=== PATIENT | female | born 1950 | race Hispanic/Latino ===

== ENCOUNTER 2018-04-21 15:04 | Emergency (ER) | payer BC, MEDICARE ==
[2018-04-21] MEDS ORDERED: FLUORESCEIN SODIUM 0.6 MG STRIP ONE (16:05)
[2018-04-21] MEDS ORDERED: NA BORATE/BORIC AC/H2O/NACL 120 ML OPHTH IRRIG SOLN ONE (16:05)
== END 2018-04-21 16:43 | disposition home or self-care (01) ==
LOC: EDH 15:04
DX: S05.02XA Injury of conjunctiva and corneal abrasion without foreign body, left eye, initial encounter (principal); Z90.710 Acquired absence of both cervix and uterus; X58.XXXA Exposure to other specified factors, initial encounter; Y93.89 Activity, other specified; Y92.89 Other specified places as the place of occurrence of the external cause; Y99.8 Other external cause status

== ENCOUNTER 2020-09-03 12:46 | Inpatient (IN) | payer BC, MEDICARE ==
[~2020-09-03] VITALS: Ht 160 cm; Wt 70.3 kg
[2020-09-03] MEDS ORDERED: ACETAMINOPHEN 500 MG TABLET ONE (13:03)
[2020-09-03 13:30] LABS: BASOPHILS % (AUTO) 0.4 % (0.0-5.0); EOSINOPHILS % (AUTO) 0.8 % (0.0-8.0); HEMATOCRIT 41.5 % (36-48); LYMPHOCYTES % (AUTO) 11.9 % (21.0-51.0); MEAN CORPUSCULAR HEMOGLOBIN 29.5 pg (27.0-33.0); MEAN CORPUSCULAR VOLUME 89.4 fL (79-99); MONOCYTES % (AUTO) 7.8 % (3.0-13.0); NEUTROPHILS % (AUTO) 78.7 % (40.0-77.0); PLATELET COUNT (AUTO) 245 K/uL (130-400); RED BLOOD CELL COUNT(AUTO) 4.64 MIL/uL (4.00-5.50); RED CELL DISTRIBUTION WIDTH 13.2 % (11.0-15.5); WHITE BLOOD COUNT (AUTO) 11.6 K/uL (4.8-10.8)
[2020-09-03 13:32] LABS: APPEARANCE,URINE Clear (CLEAR); BILIRUBIN,URINE Large (NEGATIVE); COLOR,URINE Dark Yellow (YELLOW); GLUCOSE, URINE (UA) Negative (NEGATIVE); KETONES,URINE Negative (NEGATIVE); LEUKOCYTE ESTERASE ,URINE Trace (NEGATIVE); NITRATE,URINE Negative (NEGATIVE); OCCULT BLOOD,URINE Trace (NEGATIVE); PH,URINE 5.5 (5.0-8.0); PROTEIN,URINE Negative (NEGATIVE)
[2020-09-03 13:47] LABS: B-TYPE NATRIURETIC PEPTIDE 504 pg/mL (0-100)
[2020-09-03 13:48] LABS: BACTERIA,URINE Rare /HPF (None Seen); RBC,URINE 0-1 /HPF (0-1); WBC,URINE 0-1 /HPF (0-1)
[2020-09-03 13:49] LABS: SQUAMOUS EPITHELIAL CELL,UR Few /HPF (0-2)
[2020-09-03 13:57] LABS: ALBUMIN 3.4 g/dL (3.5-5.0); BILIRUBIN,TOTAL 4.4 mg/dL (0.2-1.0); POTASSIUM 3.2 mmol/L (3.5-5.1); TOTAL PROTEIN, SERUM 7.7 g/dL (6.0-8.3)
[2020-09-03 14:01] LABS: PARTIAL THROMBOPLASTIN TIME 22.8 SEC (26.3-35.5)
[2020-09-03 14:08] LABS: PROTHROMBIN TIME 10.9 SEC (9.6-11.6)
[2020-09-03 14:45] LABS: CREATININE 0.9 mg/dL (0.5-1.5)
[2020-09-03] MEDS ORDERED: GADOTERATE MEGLUMINE 10 MMOL/20 ML VIAL IV ONE (14:49)
[2020-09-03] MEDS: LACTATED RINGERS 1000ML 1,000 ML IV SCH (15:45)
[2020-09-03] MEDS ORDERED: ONDANSETRON 4MG INJ IV PRN (15:45)
[2020-09-03] MEDS ORDERED: POTASSIUM CHLORIDE 10MEQ/100ML 100 ML IV PRN (16:15)
[2020-09-03] MEDS ORDERED: LIDOCAINE HCL-MPF 1% 2ML VIAL IV PRN (16:15)
[2020-09-03 16:42] LABS: CHOLESTEROL 183 mg/dL (<200); HDL CHOLESTEROL 68 mg/dL (35-85); LDL DIRECT 82 mg/dL (0-99); TRIGLYCERIDES 74 mg/dL (30-200)
[2020-09-03] MEDS ORDERED: ZOSYN 3.375GM+NS 50ML 50 ML IV ONE (19:06)
[2020-09-03] MEDS ORDERED: LACTATED RINGERS 1000ML 1,000 ML IV ONE (19:07)
[2020-09-03] MEDS: ZOSYN 3.375GM+NS 50ML 50 ML IV SCH (21:00)
[2020-09-03] MEDS ORDERED: MORPHINE 2 MG SYG ONE (22:52)
[2020-09-04] VITALS (20 sets, daily range): BP systolic 102–141; BP diastolic 48–67
[2020-09-04] MEDS: LACTATED RINGERS 1000ML 1,000 ML IV SCH ×2 (01:24→11:45)
[2020-09-04] MEDS ORDERED: KCL 20 MEQ ERTAB PO ONE (02:12)
[2020-09-04] MEDS ORDERED: LEVO75TA4 PO (02:41)
[2020-09-04] MEDS ORDERED: CHLO25TA3 PO (02:41)
[2020-09-04] MEDS ORDERED: PREM625 PO (02:41)
[2020-09-04] MEDS: ZOSYN 3.375GM+NS 50ML 50 ML IV SCH ×3 (02:59→20:13)
[2020-09-04] MEDS: MORPHINE 2 MG SYG IV PRN ×2 (03:29→08:10)
[2020-09-04 05:50] LABS: BASOPHILS % (AUTO) 0.3 % (0.0-5.0); EOSINOPHILS % (AUTO) 0.8 % (0.0-8.0); HEMATOCRIT 37.9 % (36-48); LYMPHOCYTES % (AUTO) 11.8 % (21.0-51.0); MEAN CORPUSCULAR HEMOGLOBIN 30.3 pg (27.0-33.0); MEAN CORPUSCULAR HGB CONC 33.8 g/dL (32.0-36.0); MEAN CORPUSCULAR VOLUME 89.6 fL (79-99); MONOCYTES % (AUTO) 9.4 % (3.0-13.0); NEUTROPHILS % (AUTO) 76.9 % (40.0-77.0); PLATELET COUNT (AUTO) 215 K/uL (130-400); RED BLOOD CELL COUNT(AUTO) 4.23 MIL/uL (4.00-5.50); RED CELL DISTRIBUTION WIDTH 13.4 % (11.0-15.5); WHITE BLOOD COUNT (AUTO) 14.6 K/uL (4.8-10.8)
[2020-09-04 06:19] LABS: ALBUMIN 2.9 g/dL (3.5-5.0); BILIRUBIN,TOTAL 5.3 mg/dL (0.2-1.0); CREATININE 0.8 mg/dL (0.5-1.5); POTASSIUM 3.8 mmol/L (3.5-5.1); TOTAL PROTEIN, SERUM 6.7 g/dL (6.0-8.3)
[2020-09-04] MEDS ORDERED: PROPOFOL 10 MG/ML 20ML VIAL IV ONE (08:50)
[2020-09-04] MEDS ORDERED: LIDOCAINE PF 100MG/5ML (2%) SYRINGE 5ML ONE (08:50)
[2020-09-04] MEDS ORDERED: ONDANSETRON 4MG INJ ONE (08:50)
[2020-09-04] MEDS ORDERED: SUCCINYLCHOLINE CHLORIDE 20 MG/ML 10 ML VIAL ONE (08:50)
[2020-09-04] MEDS: ENOXAPARIN SODIUM 40 MG/0.4 ML SYRINGE SQ SCH (09:00)
[2020-09-04] MEDS ORDERED: INDOMETHACIN 50 MG SUPP.RECT RC SCH (09:00)
[2020-09-04] MEDS ORDERED: IOHEXOL-350 50ML VIAL IV ONE (09:04)
[2020-09-04] MEDS: KCL 20 MEQ ERTAB PO PRN (17:55)
[2020-09-04] MEDS: ACETAMINOPHEN 325 MG TAB PO PRN (22:50)
[2020-09-05 04:09] VITALS: BP 117/64
[2020-09-05] MEDS: ZOSYN 3.375GM+NS 50ML 50 ML IV SCH ×3 (05:12→20:48)
[2020-09-05 05:18] LABS: BASOPHILS % (AUTO) 0.3 % (0.0-5.0); EOSINOPHILS % (AUTO) 1.8 % (0.0-8.0); HEMATOCRIT 35.8 % (36-48); LYMPHOCYTES % (AUTO) 19.2 % (21.0-51.0); MEAN CORPUSCULAR HEMOGLOBIN 30.4 pg (27.0-33.0); MEAN CORPUSCULAR HGB CONC 33.8 g/dL (32.0-36.0); MEAN CORPUSCULAR VOLUME 89.9 fL (79-99); MONOCYTES % (AUTO) 10.4 % (3.0-13.0); NEUTROPHILS % (AUTO) 67.9 % (40.0-77.0); PLATELET COUNT (AUTO) 199 K/uL (130-400); RED BLOOD CELL COUNT(AUTO) 3.98 MIL/uL (4.00-5.50); RED CELL DISTRIBUTION WIDTH 13.3 % (11.0-15.5); WHITE BLOOD COUNT (AUTO) 12.8 K/uL (4.8-10.8)
[2020-09-05] MEDS: LACTATED RINGERS 1000ML 1,000 ML IV SCH (05:20)
[2020-09-05 05:26] LABS: CREATININE 0.7 mg/dL (0.5-1.5); POTASSIUM 3.3 mmol/L (3.5-5.1)
[2020-09-05 08:00] VITALS: BP 133/60
[2020-09-05] MEDS: ENOXAPARIN SODIUM 40 MG/0.4 ML SYRINGE SQ SCH (09:00)
[2020-09-05] MEDS: MORPHINE 2 MG SYG IV PRN (09:27)
[2020-09-05] MEDS: POTASSIUM CHLORIDE IV SCH ×2 (10:08→20:48)
[2020-09-05] MEDS: 1/2 NS IV SCH ×2 (10:08→20:48)
[2020-09-05 12:00] VITALS: BP 141/66
[2020-09-05 16:00] VITALS: BP 148/70
[2020-09-05 20:43] VITALS: BP 152/70
[2020-09-05] MEDS: ACETAMINOPHEN 325 MG TAB PO PRN (21:07)
[2020-09-06 00:47] VITALS: BP 123/67
[2020-09-06] MEDS: ZOSYN 3.375GM+NS 50ML 50 ML IV SCH ×3 (04:03→19:47)
[2020-09-06 04:32] VITALS: BP 131/71
[2020-09-06 05:16] LABS: BASOPHILS % (AUTO) 0.6 % (0.0-5.0); EOSINOPHILS % (AUTO) 3.9 % (0.0-8.0); HEMATOCRIT 35.3 % (36-48); LYMPHOCYTES % (AUTO) 25.7 % (21.0-51.0); MEAN CORPUSCULAR HEMOGLOBIN 30.4 pg (27.0-33.0); MEAN CORPUSCULAR HGB CONC 33.7 g/dL (32.0-36.0); MEAN CORPUSCULAR VOLUME 90.3 fL (79-99); MONOCYTES % (AUTO) 10.7 % (3.0-13.0); NEUTROPHILS % (AUTO) 58.5 % (40.0-77.0); PLATELET COUNT (AUTO) 219 K/uL (130-400); RED BLOOD CELL COUNT(AUTO) 3.91 MIL/uL (4.00-5.50); RED CELL DISTRIBUTION WIDTH 13.4 % (11.0-15.5); WHITE BLOOD COUNT (AUTO) 10.9 K/uL (4.8-10.8)
[2020-09-06 05:33] LABS: ALBUMIN 2.6 g/dL (3.5-5.0); BILIRUBIN,TOTAL 1.1 mg/dL (0.2-1.0); CREATININE 0.8 mg/dL (0.5-1.5); CRP QUANTITATIVE 156.1 mg/L (0.00-9.0); MAGNESIUM 1.9 mg/dL (1.80-2.40); POTASSIUM 3.3 mmol/L (3.5-5.1); TOTAL PROTEIN, SERUM 6.6 g/dL (6.0-8.3)
[2020-09-06] MEDS: KCL 20 MEQ ERTAB PO PRN (05:58)
[2020-09-06] MEDS: ENOXAPARIN SODIUM 40 MG/0.4 ML SYRINGE SQ SCH (09:00)
[2020-09-06 09:31] VITALS: BP 143/63
[2020-09-06] MEDS: POTASSIUM CHLORIDE 10% ELIXIR 20 MEQ/15 ML UDCUP PO PRN ×2 (09:35→12:59)
[2020-09-06 13:46] VITALS: BP 139/72
[2020-09-06 17:05] VITALS: BP 142/71
[2020-09-06] MEDS: POTASSIUM CHLORIDE IV SCH (19:48)
[2020-09-06] MEDS: 1/2 NS IV SCH (19:48)
[2020-09-06 20:00] VITALS: BP 155/72
[2020-09-06] MEDS ORDERED: ACETAMINOPHEN 325 MG TAB PO PRN (20:00)
[2020-09-07] VITALS: BP 125/57
[2020-09-07] MEDS: POTASSIUM CHLORIDE IV SCH ×2 (00:39→14:07)
[2020-09-07] MEDS: 1/2 NS IV SCH ×2 (00:39→14:07)
[2020-09-07 04:00] VITALS: BP 133/70
[2020-09-07] MEDS: ZOSYN 3.375GM+NS 50ML 50 ML IV SCH ×2 (04:13→13:00)
[2020-09-07 05:25] LABS: BASOPHILS % (AUTO) 0.6 % (0.0-5.0); EOSINOPHILS % (AUTO) 4.6 % (0.0-8.0); HEMATOCRIT 36.5 % (36-48); LYMPHOCYTES % (AUTO) 30.2 % (21.0-51.0); MEAN CORPUSCULAR HEMOGLOBIN 30.2 pg (27.0-33.0); MEAN CORPUSCULAR HGB CONC 33.2 g/dL (32.0-36.0); MONOCYTES % (AUTO) 10.3 % (3.0-13.0); NEUTROPHILS % (AUTO) 53.7 % (40.0-77.0); PLATELET COUNT (AUTO) 246 K/uL (130-400); RED BLOOD CELL COUNT(AUTO) 4.01 MIL/uL (4.00-5.50); RED CELL DISTRIBUTION WIDTH 13.4 % (11.0-15.5); WHITE BLOOD COUNT (AUTO) 9.6 K/uL (4.8-10.8)
[2020-09-07 05:57] LABS: ALBUMIN 2.7 g/dL (3.5-5.0); BILIRUBIN,TOTAL 0.9 mg/dL (0.2-1.0); CREATININE 0.8 mg/dL (0.5-1.5); POTASSIUM 4.4 mmol/L (3.5-5.1); TOTAL PROTEIN, SERUM 6.9 g/dL (6.0-8.3)
[2020-09-07 08:23] VITALS: BP 136/59
[2020-09-07] MEDS: ENOXAPARIN SODIUM 40 MG/0.4 ML SYRINGE SQ SCH (09:38)
[2020-09-07] MEDS ORDERED: AMOX-429 PO (10:58)
[2020-09-07 13:46] VITALS: BP 132/64
== END 2020-09-07 15:15 | disposition home or self-care (01) | DRG 444 ==
LOC: EDH 12:46 → EDHIP 15:40 → 3AH 09-04 01:58
PROVIDERS: ADMIT Internal Medicine; ATTEND Internal Medicine
PROC: 0F798ZZ Dilation of Common Bile Duct, Via Natural or Artificial Opening Endoscopic (ICD-10-PCS; principal; 2020-09-04)
PROC: BF101ZZ Fluoroscopy of Bile Ducts using Low Osmolar Contrast (ICD-10-PCS; 2020-09-04)
DX: K80.62 Calculus of gallbladder and bile duct with acute cholecystitis without obstruction (principal); K85.10 Biliary acute pancreatitis without necrosis or infection; E87.6 Hypokalemia; E03.9 Hypothyroidism, unspecified; I10 Essential (primary) hypertension; Z90.710 Acquired absence of both cervix and uterus
CPT/HCPCS: 36415; 43262; 43264; 74181; 74330; 76705; 80048; 80053; 80061; 81001; 83605; 83690; 83735; 83880; 84145; 84484; 85025; 85610; 85730; 86140; 87040; 93005; A4606; C1769; C1773; G0378; J0330; J1650; J2001; J2405; J2543; J2704; J3480; J7030; J7120; Q9967

== ENCOUNTER 2023-03-27 14:09 | Emergency (ER) | payer OTHER, BC ==
[~2023-03-27] VITALS: Ht 160 cm; Wt 73.9 kg
[~2023-03-27 14:09] MED LIST: AMOX-429 PO; CHLO25TA3 PO; LEVO75TA4 PO; PREM625 PO
[2023-03-27 14:18] VITALS: BP 147/79; PULSE 92; RESP 16; O2SAT 97
[2023-03-27] MEDS ORDERED: KETOROLAC 30MG VIAL (30MG/ML) IM ONE (16:00)
[2023-03-27] MEDS ORDERED: IBUP-2070 PO (17:18)
== END 2023-03-27 17:31 | disposition home or self-care (01) ==
LOC: EDH 14:09
DX: S42.002A Fracture of unspecified part of left clavicle, initial encounter for closed fracture (principal); Z79.890 Hormone replacement therapy; Z88.5 Allergy status to narcotic agent; Z88.8 Allergy status to other drugs, medicaments and biological substances; V89.2XXA Person injured in unspecified motor-vehicle accident, traffic, initial encounter; Y93.89 Activity, other specified; Y92.89 Other specified places as the place of occurrence of the external cause; Y99.8 Other external cause status
CPT/HCPCS: 99284; 71100; 73010; 73030; 96372; J1885; 29105